=== PATIENT | female | born 1950 | race Caucasian/White ===

== ENCOUNTER → 2016-10-23 | Outpatient (CLI) | payer MEDICARE, MEDICAID | LOC: COL.RAD 11:43 | DX: M17.12 Unilateral primary osteoarthritis, left knee (principal); M25.562 Pain in left knee ==

== ENCOUNTER → 2019-12-22 | Outpatient (CLI) | payer MEDICARE, MEDICAID | LOC: COL.RAD 06:40 | DX: R68.81 Early satiety (principal) | CPT/HCPCS: A9541 ==

== ENCOUNTER → 2021-02-12 | Outpatient (CLI) | payer MEDICARE, MEDICAID | LOC: COL.RAD 07:21 | DX: H90.5 Unspecified sensorineural hearing loss (principal) | CPT/HCPCS: A9585 ==

== ENCOUNTER → 2021-02-28 | Outpatient (CLI) | payer MEDICARE, MEDICAID | LOC: COL.RAD 10:47 | DX: I67.1 Cerebral aneurysm, nonruptured (principal) | CPT/HCPCS: Q9967 ==

== ENCOUNTER → 2021-04-16 | Outpatient (CLI) | payer MEDICARE, MEDICAID | LOC: COL.VAS 11:55 | DX: I67.1 Cerebral aneurysm, nonruptured (principal) ==